=== PATIENT | male | born 1985 | race American Indian/Alaskan Native ===

== ENCOUNTER 2017-01-10 19:35 | Emergency (ER) | payer OTHER, BC ==
[2017-01-10 19:53] VITALS: BP 137/68
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
[2017-01-10] MEDS ORDERED: MOTRIN PO ONE (20:32)
== END 2017-01-10 20:43 | disposition home or self-care (01) ==
LOC: ED 19:35
DX: M25.512 Pain in left shoulder (principal); M54.89 Other dorsalgia
CPT/HCPCS: 99282